=== PATIENT | male | born 1985 | race Two or more races ===

== ENCOUNTER 2022-06-05 23:30 | Emergency (ER) | payer OTHER ==
[~2022-06-05] VITALS: Ht 172.7 cm; Wt 90.7 kg
[2022-06-06] MEDS ORDERED: ONDANSETRON 4 MG/2 ML VIAL ONE (00:21)
[2022-06-06] MEDS ORDERED: KETOROLAC TROMETHAMINE 15 MG INJ ONE (00:21)
[2022-06-06] MEDS ORDERED: MORPHINE SULFATE 2 MG/1 ML DISP.SYRIN ONE (00:22)
[2022-06-06] MEDS: MORPHINE SULFATE 2 MG/1 ML DISP.SYRIN IV ONE (00:30)
[2022-06-06] MEDS: KETOROLAC TROMETHAMINE 15 MG INJ IVP ONE (00:30)
[2022-06-06] MEDS: ONDANSETRON 4 MG/2 ML VIAL IV ONE (00:30)
[2022-06-06] MEDS: IV NS 1000 ML 1,000 ML IV ONE (00:33)
[2022-06-06 00:59] LABS: HEMATOCRIT 44.6 % (36.7-47.1); MEAN CORPUSCULAR HEMOGLOBIN 30.2 uug (23.8-33.4); MEAN CORPUSCULAR VOLUME 89.7 fL (73.0-96.2); PLATELET COUNT (AUTO) 258 K/uL (152-348)
[2022-06-06] MEDS ORDERED: MORPHINE SULFATE 4 MG/1 ML DISP.SYRIN ONE (01:12)
[2022-06-06] MEDS: MORPHINE SULFATE 4 MG/1 ML DISP.SYRIN IV ONE (01:14)
[2022-06-06 01:18] LABS: ALANINE AMINOTRANSFERASE 33 U/L (16-63); ALKALINE PHOSPHATASE 94 U/L (50-136); ASPARTATE AMINOTRANSFERASE 17 U/L (15-37); BILIRUBIN,DIRECT 0.2 mg/dL (0.0-0.2); BILIRUBIN,TOTAL 0.6 mg/dL (0.2-1.0); CARBON DIOXIDE 29 mmol/L (21-32); CHLORIDE 105 mmol/L (98-107); CREATININE 0.9 mg/dL (0.6-1.3); GLUCOSE 105 mg/dL (74-106); LIPASE 94 U/L (73-393); POTASSIUM 3.9 mmol/L (3.5-5.1); TOTAL PROTEIN, SERUM 6.9 g/dL (6.4-8.2); UREA NITROGEN, BLOOD 19 mg/dL (7-18)
[2022-06-06] MEDS ORDERED: IV NORMAL SALINE 250 ML IV ONE (01:56)
[2022-06-06] MEDS ORDERED: SWABABLE VALVE TRANSFER SET EA MC ONE (01:56)
[2022-06-06] MEDS ORDERED: IOHEXOL 300MG/ML 100 ML INFUS..BTL ONE (01:56)
--- NOTE | 2022-06-06 06:00 | NUR ---
Patient walked to the restroom with steady gait, NAD noted
[2022-06-06 06:23] LABS: *BILIRUBIN,URIN NEGATIVE (NEGATIVE); *BLOOD, URINE NEGATIVE (NEGATIVE); *CLARITY,URINE CLEAR (CLEAR); *COLOR,URINE YELLOW (YELLOW); *KETONES,URINE NEGATIVE (NEGATIVE); *UROBILINOGEN,URINE 0.2 E.U./dl (NORMAL); LEUKOCYTE ESTERASE ,URINE NEGATIVE (NEGATIVE); NITRITE, URINE NEGATIVE (NEGATIVE); PH,URINE 6.5 (5.0-8.0); UGLUCOSE NEGATIVE (NEGATIVE)
--- NOTE | 2022-06-06 07:06 | NUR ---
Endorsed to Muna SIGALA
--- NOTE | 2022-06-06 07:10 | NUR ---
Recieved pt in bed, resting w/ both eyes closed. NAD noted.
[2022-06-06] MEDS ORDERED: KETOROLAC TROMETHAMINE 30 MG INJ ONE (07:59)
[2022-06-06] MEDS: KETOROLAC TROMETHAMINE 30 MG INJ IVP ONE (08:02)
[2022-06-06] MEDS ORDERED: AMOX-430 PO (08:33)
[2022-06-06 08:51] VITALS: BP 120/71
--- NOTE | 2022-06-06 08:51 | NUR ---
IV removed. Catheter intact and site benign. Pressure and 4x4 gauze applied to site. No bleeding noted.
--- NOTE | 2022-06-06 08:52 | NUR ---
Patient discharged to home in stable condition. Written and verbal after care instructions given. Patient verbalizes understanding of instructions. Stressed follow up or return to ER for worsening s/s.
== END 2022-06-06 09:00 | disposition home or self-care (01) ==
LOC: ER 23:39
DX: R10.32 Left lower quadrant pain (principal); Z87.19 Personal history of other diseases of the digestive system
CPT/HCPCS: 99285; 74177; 96374; 96375; 96361; 80076; 80048; 81003; 83690; 85025; 87040 ×2; 84484; 36415; 93005; 96376; 83605; J1885 ×2; J2405; Q9967; J2270 ×2; J7040